=== PATIENT | male | born 1980 | race Caucasian/White ===

== ENCOUNTER 2018-11-06 12:00 | Inpatient (IN) | payer BC ==
[~2018-11-06] VITALS: Ht 182.9 cm; Wt 77.6 kg
[2018-11-06] MEDS ORDERED: ONDANSETRON HCL 4MG/2ML INJ IV STA ×2 (12:22→13:25)
[2018-11-06] MEDS ORDERED: SODIUM CHLORIDE 0.9% 1,000 ML IV ONE (12:22)
[2018-11-06] MEDS ORDERED: GLUCAGON,HUMAN RECOMBINANT 1MG/VIAL IM ONE (12:30)
[2018-11-06] MEDS ORDERED: MORPHINE SULFATE 4 MG/ML CPJ (NOT FOR IM USE) IV STA (13:25)
[2018-11-06] MEDS ORDERED: PANTOPRAZOLE SODIUM 40 MG/VIAL IV SCH (14:00)
[2018-11-06 14:14] LABS: BASOPHILS % 0.8 % (0.0-2.0); EOSINOPHILS % 2.9 % (0.0-5.0); HEMOGLOBIN. 13.9 g/dL (14.0-18.0); LYMPHOCYTES % 24.2 % (20.0-50.0); MEAN CORPUSCULAR VOLUME 88.1 fL (80.0-94.0); MEAN PLATELET VOLUME 8.2 fl (7.4-10.4); MONOCYTES % 5.8 % (2.0-8.0); NEUTROPHILS % 66.3 % (40.0-76.0); PLATELET 241 x1000/uL (130-400); RED BLOOD CELL COUNT 4.65 mill/uL (4.7-6.1)
[2018-11-06 14:19] LABS: CHLORIDE 106 mEq/L (98-107)
[2018-11-06 14:20] LABS: INR 1.1; PROTHROMBIN TIME 10.6 sec (9.1-11.1)
[2018-11-06 14:26] VITALS: BP 116/68
[2018-11-06] MEDS ORDERED: KETOROLAC 15MG/ML VIAL IV PRN (15:15)
[2018-11-06 16:20] VITALS: BP 116/68
[2018-11-06] MEDS ORDERED: DIAZEPAM 5 MG/ML 2ML CPJ IV PRN ×2 (17:45)
[2018-11-06] MEDS ORDERED: ACETAMINOPHEN 325MG TABLET PO PRN (17:45)
[2018-11-06] MEDS ORDERED: ONDANSETRON HCL 4MG/2ML INJ IV PRN (17:45)
[2018-11-06] MEDS ORDERED: DEXT 5%/0.45% NACL 1000ML 1,000 ML IV SCH (18:00)
[2018-11-06] MEDS ORDERED: MIDAZOLAM HCL 5 MG/5 ML VIAL ONE (18:17)
[2018-11-06] MEDS ORDERED: FENTANYL CITRATE/PF 50MCG/ML 2ML VIAL ONE (18:17)
[2018-11-06] MEDS ORDERED: DIPHENHYDRAMINE 50MG/ML VIAL ONE (18:17)
[2018-11-06] MEDS ORDERED: PROPOFOL 200MG/20ML VIAL IV ONE ×3 (18:24→18:43)
[2018-11-06] MEDS ORDERED: DEXT 5%/0.45% NACL 1000ML 1,000 ML IV NR (19:15)
[2018-11-06] MEDS ORDERED: PANTOPRAZOLE SODIUM 40 MG/VIAL IV ONE (19:45)
[2018-11-06 20:00] VITALS: BP 122/65
[2018-11-06 21:52] VITALS: BP 122/75
[2018-11-07] MEDS ORDERED: SUCRALFATE 1 G/10 ML UDC PO SCH
== END 2018-11-06 22:10 | disposition home or self-care (01) | DRG 394 ==
LOC: ER 12:00 → 8WST 13:21 → ENRESERV 15:57
PROVIDERS: ADMIT Hospitalist; ATTEND Hospitalist
PROC: 0DB28ZX Excision of Middle Esophagus, Via Natural or Artificial Opening Endoscopic, Diagnostic (ICD-10-PCS; 2018-11-06)
PROC: 0DB78ZX Excision of Stomach, Pylorus, Via Natural or Artificial Opening Endoscopic, Diagnostic (ICD-10-PCS; 2018-11-06)
PROC: 0DC38ZZ Extirpation of Matter from Lower Esophagus, Via Natural or Artificial Opening Endoscopic (ICD-10-PCS; principal; 2018-11-06 15:30)
DX: T18.128A Food in esophagus causing other injury, initial encounter (principal); K22.10 Ulcer of esophagus without bleeding; K22.2 Esophageal obstruction; K29.70 Gastritis, unspecified, without bleeding; K44.9 Diaphragmatic hernia without obstruction or gangrene; X58.XXXA Exposure to other specified factors, initial encounter; Y93.89 Activity, other specified; Y92.89 Other specified places as the place of occurrence of the external cause; Y99.8 Other external cause status
CPT/HCPCS: 36415; 88300; 88305; 88312; 88313; 96374; 99285; C9113; J1200; J1610; J2250; J2405; J2704; J3010; J7030